=== PATIENT | male | born 1945 | race Caucasian/White ===

== ENCOUNTER 2017-04-13 08:18 | Outpatient (CLI) | payer MEDICARE | END 2017-04-13 08:19 | disposition home or self-care (01) | LOC: BICMRI 08:18 | PROVIDERS: ATTEND Orthopaedic Surgery | DX: M25.512 Pain in left shoulder (principal); M19.012 Primary osteoarthritis, left shoulder; M75.92 Shoulder lesion, unspecified, left shoulder ==

== ENCOUNTER 2017-11-08 15:07 | Emergency (ER) | payer MEDICARE ==
[2017-11-08] MEDS ORDERED: Famotidine 20 MG TAB ONE (16:08)
[2017-11-08] MEDS ORDERED: Ibuprofen 200 MG TAB ONE (16:08)
[2017-11-08] MEDS ORDERED: predniSONE 20 MG TAB ONE (16:08)
[2017-11-08] MEDS ORDERED: Acetaminophen 500 MG TAB ONE (16:08)
== END 2017-11-08 16:13 | disposition home or self-care (01) ==
LOC: ERS 15:07
DX: T63.451A Toxic effect of venom of hornets, accidental (unintentional), initial encounter (principal)
CPT/HCPCS: 99282; J7506

== ENCOUNTER 2019-08-22 14:11 | Outpatient (CLI) | payer MEDICARE, OTHER ==
--- NOTE | 2019-08-22 16:32 | EEG ---
DATE OF SERVICE: 08/22/2019 ATTENDING PHYSICIAN: Dory Martinez MD This EEG was performed using 24-channel [employer] video digital EEG machine with 24-disk electrodes. This was a routine EEG recording. BACKGROUND: The posterior background rhythm is 9 to 10 Hz. The background rhythm attenuates with eye opening and enhances with eye closure. HYPERVENTILATION: No significant response seen with hyperventilation. PHOTIC STIMULATION: Bioccipital symmetric driving responses observed. SLEEP: Drowsiness is observed. EEG DIAGNOSIS: Normal awake and drowsy EEG. Job ID: [id number]
== END 2019-08-22 14:12 | disposition home or self-care (01) ==
LOC: EEG 14:11
PROVIDERS: ATTEND Internal Medicine
DX: G40.409 Other generalized epilepsy and epileptic syndromes, not intractable, without status epilepticus (principal)
CPT/HCPCS: 95816

== ENCOUNTER 2019-10-06 06:01 | Observation (INO) | payer MEDICARE, OTHER ==
[2019-10-06 06:25] LABS: #Lymphocytes 1.1 thou/uL (1.20-3.40); #Monocytes 0.3 thou/uL (0.11-0.59); #Neutrophils 4.5 thou/uL (1.40-6.50); %Basophils 0.7 % (0.0-1.0); %Eosinophils 0.7 % (0.0-10.0); %Lymphocytes 18.7 % (21.0-51.0); %Neutrophils 74.8 % (42.0-75.0); Hemoglobin 14.1 g/dL (14.0-18.0); Mean Corpuscular HGB CONC 33.7 g/dL (32.0-36.0); Mean Corpuscular Hemoglobin 32.4 pg (27.0-31.0); Platelet Count 212 thou/uL (130-400); RBC Distribution Width 13.2 % (11.5-14.5); Red Blood Cell (RBC) Count 4.36 mill/uL (4.70-6.10)
[2019-10-06] MEDS ORDERED: Lorazepam 2 MG/ML VIAL ONE (06:34)
[2019-10-06 06:46] LABS: Acetaminophen Less than 6.0 mcg/mL (10.0-30.0); Alcohol Less than 10 mg/dL (Less than 10); Salicylate Less than 8.0 mg/dL (15.0-30.0)
[2019-10-06 06:48] LABS: ALT (SGPT) 15 U/L (8-55); AST (SGOT) 17 U/L (5-34); Albumin 4.2 g/dL (3.4-4.8); Alkaline Phosphatase 94 U/L (40-110); Anion Gap 21 mmol/L (10-20); BUN (Urea Nitrogen) 10 mg/dL (8.4-25.7); Bilirubin, Total 0.5 mg/dL (0.2-1.2); Calc. Creatinine Clearance 0 mL/min (70-130); Calcium 8.6 mg/dL (7.8-10.44); Carbon Dioxide 14 mmol/L (23-31); Chloride 104 mmol/L (98-107); Estimated GFR-MDRD 75; Globulin 2.4 g/dL (2.4-3.5); Glucose 186 mg/dL (83-110); Potassium 4.8 mmol/L (3.5-5.1); Protein, Total 6.6 g/dL (5.8-8.1); Sodium 134 mmol/L (136-145)
--- NOTE | 2019-10-06 08:08 | CT ---
CT OF THE BRAIN WITHOUT CONTRAST: DATE: 10/06/2019 INDICATION: 74-year-old male with history of seizure. COMPARISON: None. FINDINGS: There is moderate chronic small vessel white matter ischemic change. The septum pellucidum and third ventricle are midline. No definite acute infarct, hemorrhage, or hydrocephalus is present. Mastoid ai r cells are clear. Mild mucosal thickening is seen in the ethmoid air cells. The skull is intact. IMPRESSION: 1. No acute intracranial abnormality. 2. Moderate chronic small vessel white matter ischemic change. POS: BH
[2019-10-06 08:43] LABS: Glucose, Urine (Dipstick) Normal (Negative); Protein, Urine (Dipstick) 10 mg/dL (Neg-Trace)
[2019-10-06 09:18] LABS: Amphetamine Not Detected (NotDetected); Barbiturates Screen Not Detected (NotDetected); Benzodiazepine Screen Not Detected (NotDetected); Cocaine Metabolite Screen Not Detected (NotDetected); Medtox Control Line Valid? VALID (VALID); Medtox Reader # READER 4; Methadone Not Detected (NotDetected); Methamphetamine Not Detected (NotDetected); Opiate Screen Not Detected (NotDetected); Oxycodone Screen Not Detected (NotDetected); Phencyclidine (PCP) Not Detected (NotDetected); THC/Cannabinoid Screen Not Detected (NotDetected); Tricyclic Screen Not Detected (NotDetected)
[2019-10-06 09:28] LABS: Bilirubin Negative (Negative); Blood, Urine Negative (Negative); Clarity Clear (Clear); Ketone, Urine 10 mg/dL (Negative); Leukocyte Negative Leu/uL (Negative); Nitrite Negative (Negative); Specific Gravity, Urine 1.013 (1.002-1.036); Urobilinogen Normal mg/dL (Less than 2)
--- NOTE | 2019-10-06 10:23 | PDOC.HHP ---
Hospitalist HPI - History of Present Illness Seizure at home History of Present Illness: Mr. Lozano is a pleasant 74-year-old gentleman that has no significant past medical history. She was brought to the hospital by his via EMS due to concerns for seizure activity. The history of present illness is taken from review of the ER records and discussion with the ER physician as the patient does not remember what happened. The patient's says she noted around 2 AM that the patient was having tonic-clonic like activity and had lost consciousness. This appeared like a seizure she placed him on his side and noticed that he was frothing at the mouth and called EMS. He was brought to the ER where he appeared to be post ictal and a bit confused. As time went on he became more lucid he does not remember what happened. He says that prior to the event he denied having any headaches or any dizziness. He denies any fevers or chills no cough no congestion. This happened around 830 to 9 PM while he was laying in bed watching TV. The patient had a CT scan of the brain done in the ER which was negative. The patient's apparently told the ER physician that she believes this is related to alcohol. She says that he drinks up to a case of beer daily and "drinks until he becomes "" belligerent. The patient denies this and states that he typically drinks 4-5 beers a day. However, prior to this he states that he likely drinks too much. It appears in review of the records that he has had an evaluation for seizures in the past. It is noted that he had a fairly recent EEG done which was negative. The patient does not have any recollection of this. Hospitalist ROS - Review of Systems All other systems reviewed; all pertinent +/- noted in HPI/Subj Hospitalist History - Past Medical History Source: patient Musculoskeletal: reports: Other (Chronic left hip pain) Endocrine: reports: Other (Pre-Diabetes) Other Medical History: ALLERGIES: NKDA MEDICATION: Glucosamine chondroitin sulfate as needed Glenn Loera - Past Surgical History Past Surgical History: reports: Total Hip Replacement (Left THR) - Family History Family History: reports: cancer (Colon cancer mother), diabetes mellitus ( brother) - Social History Smoking Status: Former smoker (quit 20 years ago, few cigarettes prior to this) Alcohol: reports: Heavy (He admits to 5-6 beers a day) Living Situation: With Family (CODE STATUS- FULL CODE) Occupation: Retired - Exam General Appearance: NAD, awake alert Eye: PERRL, anicteric sclera ENT: normocephalic atraumatic, no oropharyngeal lesions Neck: supple, no JVD Heart: RRR, no murmur, no gallops, no rubs, normal peripheral pulses Respiratory: CTAB, no wheezes, no rales, no ronchi, normal chest expansion, no tachypnea, normal percussion Gastrointestinal: soft, non-tender, non-distended, normal bowel sounds, no palpable masses, no hepatomegaly, no guarding Extremities: no cyanosis, no edema Extremities - other findings: + Hammer toe deformity bilaterally Skin: normal turgor, no lesions, no rashes Neurological: cranial nerve grossly intact, no weakness, no focal deficits Neurological - other findings: Heel to toe intact Musculoskeletal: normal tone, normal strength Hospitalist Results - Labs Result Diagrams: 10/06/19 06:17 10/06/19 06:17 Lab results: WBC 6.0 thou/uL (4.8-10.8) 10/06/19 06:17 Hgb 14.1 g/dL (14.0-18.0) 10/06/19 06:17 Hct 41.8 % (42.0-52.0) L 10/06/19 06:17 MCV 96.0 fL (78.0-98.0) 10/06/19 06:17 Plt Count 212 thou/uL (130-400) 10/06/19 06:17 Neutrophils % 74.8 % (42.0-75.0) 10/06/19 06:17 Sodium 134 mmol/L (136-145) L 10/06/19 06:17 Potassium 4.8 mmol/L (3.5-5.1) 10/06/19 06:17 Chloride 104 mmol/L (98-107) 10/06/19 06:17 Carbon Dioxide 14 mmol/L (23-31) L 10/06/19 06:17 BUN 10 mg/dL (8.4-25.7) 10/06/19 06:17 Creatinine 0.97 mg/dL (0.7-1.3) 10/06/19 06:17 Glucose 186 mg/dL (83-110) H 10/06/19 06:17 Calcium 8.6 mg/dL (7.8-10.44) 10/06/19 06:17 Total Bilirubin 0.5 mg/dL (0.2-1.2) 10/06/19 06:17 AST 17 U/L (5-34) 10/06/19 06:17 ALT 15 U/L (8-55) 10/06/19 06:17 Alkaline Phosphatase 94 U/L (40-110) 10/06/19 06:17 Troponin I Less than 0.010 ng/mL (< 0.028) 10/06/19 06:17 Serum Total Protein 6.6 g/dL (5.8-8.1) 10/06/19 06:17 Albumin 4.2 g/dL (3.4-4.8) 10/06/19 06:17 Urine Ketones 10 mg/dL (Negative) A 10/06/19 08:27 Urine Blood Negative (Negative) 10/06/19 08:27 Urine Nitrite Negative (Negative) 10/06/19 08:27 Ur Leukocyte Esterase Negative Prabhu/uL (Negative) 10/06/19 08:27 - Radiology Interpretation CT scan - head Status: image reviewed by me (Negative for infarct or bleed) Chest x-ray Status: image reviewed by me (No evidence of infiltrate or effusion) Hospitalist H&P A/P - Problem (1) Seizure Code(s): R56.9 - UNSPECIFIED CONVULSIONS Status: Acute (2) Alcohol abuse Code(s): F10.10 - ALCOHOL ABUSE, UNCOMPLICATED Status: Chronic (3) Pre-diabetes Code(s): R73.03 - PREDIABETES Status: Chronic - Plan Plan: * Seizure disordermore than likely this represents an alcohol withdrawal seizure. It is noted he had a recent EEG which was negative for seizure activity. However the patient denies drinking as heavily as his 's idea of how much he drinks. Therefore we will go ahead and consult neurology to see whether or not he needs long-term antiepileptic medication. CT scan of the brain was negative. We will defer getting any additional imaging to neurology. * Alcohol abusethe patient had 2+ answers to the cage questions. He does admit to feeling guilty when he drinks. And he also feels that he should likely cut back. Therefore it is likely that he does have history of alcohol abuse. We will go ahead and place him on an AST protocol thiamine and folate as well as as needed Ativan * Prediabeteswe will place him on a diabetic diet as well as a sliding scale insulin * DVT and GI prophylaxiswe will hold off on Lovenox or heparin given his propensity for possible seizure. We will use SCDs only. And place him on Protonix.
[2019-10-06] MEDS ORDERED: cloNIDine 0.1 MG TAB PO PRN (12:04)
[2019-10-06] MEDS ORDERED: Lorazepam 2 MG/ML VIAL SLOW IVP PRN (12:04)
[2019-10-06] MEDS ORDERED: hydrALAZINE 20 MG/ML VIAL SLOW IVP PRN (12:04)
[2019-10-06] MEDS ORDERED: Acetaminophen 325 MG TAB PO PRN (12:04)
[2019-10-06 12:09] VITALS: BMI 24.2
[2019-10-06] MEDS ORDERED: Thiamine 100 MG TAB PO SCH (12:15)
[2019-10-06] MEDS ORDERED: Folic Acid 1 MG TAB PO SCH (12:15)
[2019-10-06 15:10] VITALS: BP 146/68; TEMP 98.2
[2019-10-06 18:06] LABS: SARS-CoV-2 MS2 Positive; SARS-CoV-2 N Gene Negative; SARS-CoV-2 S Gene Negative; SARS-CoV-2 by NAA Not Detected (NotDetected); SARS-CoV-2 orf1ab Negative
[2019-10-06] MEDS ORDERED: levETIRAcetam 500 MG TAB PO SCH (21:00)
--- NOTE | 2019-10-06 23:54 | CON ---
DATE OF CONSULTATION: 10/06/2019 CONSULTING PHYSICIAN: Hospitalist Service. IMPRESSION: Recurrent seizures. PLAN: 1. Keppra 500 mg twice a day. 2. Office followup. HISTORY OF PRESENT ILLNESS: Mr. Lozano is a 74-year-old man with a past history of a hip replacement. He admits to drinking beer on a daily basis. He reports he only had 4 beers on Sunday. He went to sleep and his witnessed generalized tonic-clonic seizure white was sleeping. He is not having any withdrawal symptoms. He had a similar event about 2 weeks ago. His witnessed this one as well. Apparently, she is a nurse and they did not seek medical care right away. He had CT of the brain done, which showed some small-vessel ischemic changes but was otherwise unremarkable. His EEG was normal. He otherwise is feeling well. PAST MEDICAL HISTORY: Degenerative joint disease. PAST SURGICAL HISTORY: Left hip replacement. ALLERGIES: NONE REPORTED. SOCIAL HISTORY: No tobacco or drug use. FAMILY HISTORY: Noncontributory. REVIEW OF SYSTEMS: Ten-system review of systems is otherwise negative. PHYSICAL EXAMINATION: GENERAL: He is a healthy-appearing elderly man, in no distress. VITAL SIGNS: Stable. He is afebrile. HEENT: Pupils equal and reactive. Conjunctivae clear. Oropharynx clear. Cranium, normocephalic and atraumatic. NECK: Supple. No lymphadenopathy. SKIN: Clear. EXTREMITIES: No cyanosis or edema. ABDOMEN: Soft and nontender. NEUROLOGIC: He is alert and appropriate. His speech is fluent and clear. No focal deficits. He does not have any tremor or signs of withdrawal. SUMMARY: Given his age and recurrent episodes over the recent past, I would go ahead and start him on anticonvulsant therapy. He is willing to do so. I will follow up with him in the office. Job ID: [id number]
--- NOTE | 2019-10-07 03:20 | DIS ---
DATE OF ADMISSION: 10/06/2019 DATE OF DISCHARGE: 10/06/2019 DISCHARGE DISPOSITION: Home. DISCHARGE DIAGNOSES: 1. Seizure disorder. 2. Alcohol abuse. 3. Prediabetes. 4. Chronic pain secondary to the left hip. DISCHARGE MEDICATIONS: Include; 1. Keppra 500 mg one p.o. b.i.d. 2. Thiamine 100 mg p.o. daily. 3. Folic acid 1 mg p.o. daily. 4. Turmeric extract daily. 5. Saw Rodanthe 450 mg b.i.d. 6. Glucosamine chondroitin twice a day. IMAGING DONE DURING THE HOSPITAL STAY: The patient had a CT scan of the brain showing no acute intracranial abnormality. There was some moderate chronic small vessel white matter ischemic changes. CODE STATUS: Full code. ALLERGIES: NO KNOWN DRUG ALLERGIES. HOSPITAL COURSE: Mr. Lozano is a pleasant 74-year-old gentleman, who had a witnessed seizure at home by his . This is while he was asleep. She turned him over and made sure that he did an aspirate and called EMS. He was brought to the hospital and had a CT scan of the brain, which was negative. He had a previous seizure before and had an EEG done back in August, which showed no seizure activity at that time. He was evaluated by the neurologist on-call, and it was felt to go ahead and place him on Keppra. Alcohol use was discussed. The patient did not feel that he had a problem with alcohol, but he did test positive with two of the cage questions and he was instructed to cut back his usage. He was also placed on thiamine as well as folic acid, and he will need to follow up with his primary care physician in 1 to 2 weeks. Job ID: [id number]
[2019-10-07] MEDS ORDERED: Folic Acid 1 MG TAB PO SCH (09:00)
[2019-10-07] MEDS ORDERED: Thiamine 100 MG TAB PO SCH (09:00)
== END 2019-10-06 18:16 | disposition home or self-care (01) ==
LOC: ERS 06:01 → 2SE 09:57
PROVIDERS: ADMIT Internal Medicine; ATTEND Internal Medicine
DX: G40.909 Epilepsy, unspecified, not intractable, without status epilepticus (principal); R73.03 Prediabetes; G89.29 Other chronic pain; M25.552 Pain in left hip; Z79.899 Other long term (current) drug therapy; Z87.891 Personal history of nicotine dependence; Z96.642 Presence of left artificial hip joint
CPT/HCPCS: 36600; 51701; 70450; 80053; 80306; 80307; 81003; 84484; 85025; 93005; 96361; 96374; 96375; 99284; G0378 ×2; U0003; 36415; 87635; J2060

== ENCOUNTER 2020-07-27 09:40 | Outpatient (CLI) | payer MEDICARE, OTHER | END 2020-07-27 09:41 | disposition home or self-care (01) | LOC: NM 09:40 | PROVIDERS: ATTEND Orthopaedic Surgery | DX: Z47.1 Aftercare following joint replacement surgery (principal); Z96.642 Presence of left artificial hip joint | CPT/HCPCS: 78315; A9503 ==

== ENCOUNTER 2023-12-11 07:02 | Outpatient (CLI) | payer MEDICARE, OTHER | END 2023-12-11 07:03 | disposition home or self-care (01) | LOC: BICULT 07:02 | PROVIDERS: ATTEND Internal Medicine | DX: Z09 Encounter for follow-up examination after completed treatment for conditions other than malignant neoplasm (principal); Z82.49 Family history of ischemic heart disease and other diseases of the circulatory system | CPT/HCPCS: 76775 ==

== ENCOUNTER 2024-10-05 18:17 | Inpatient (IN) | payer MEDICARE, OTHER ==
[~2024-10-05 18:17] MED LIST: Iopamidol-370 76% 500 ML MDV (1 ML CHARGE) ONE
[2024-10-05 19:04] LABS: #Basophils 0.04 10x3/uL (0.0-0.2); #Eosinophils Less than 0.03 10x3/uL (0.0-0.7); #Monocytes 2.09 10x3/uL (0.11-0.59); #Neutrophils 18.32 10x3/uL (1.40-6.50); %Basophils 0.2 % (0.0-1.0); %Eosinophils 0.0 % (0.0-10.0); %Lymphocytes 4.5 % (21.0-51.0); %Monocytes 9.7 % (0.0-10.0); %Neutrophils 85.1 % (42.0-75.0); Hematocrit 41.8 % (42.0-52.0); Hemoglobin 15.0 g/dL (14.0-18.0); Mean Corpuscular Hemoglobin 34.3 pg (27.0-31.0); Mean Corpuscular Volume 95.7 fL (78.0-98.0); Platelet Count 220 10x3/uL (130-400); Red Blood Cell (RBC) Count 4.37 mill/uL (4.70-6.10); White Blood Cell (WBC) Count 21.55 10x3/uL (4.8-10.8)
[2024-10-05 19:19] LABS: ALT (SGPT) 17 U/L (Less than 45); AST (SGOT) 24 U/L (11-34); Albumin 3.6 g/dL (3.1-4.5); Alkaline Phosphatase 81 U/L (40-110); Anion Gap 18 mmol/L (10-20); BUN (Urea Nitrogen) 18 mg/dL (8.4-25.7); Bilirubin, Total 0.7 mg/dL (0.3-1.2); Calc. Creatinine Clearance 0 mL/min (70-130); Calcium 9.4 mg/dL (7.8-10.44); Carbon Dioxide 20 mmol/L (23-31); Globulin 3.0 g/dL (2.4-3.5); Glucose 158 mg/dL (83-110); Lipase 18 U/L (8-78); Magnesium 1.9 mg/dL (1.6-2.6); Potassium 4.1 mmol/L (3.5-5.1); Sodium 126 mmol/L (136-145)
[2024-10-05 19:38] LABS: Chloride 94 mmol/L (98-107)
[2024-10-05 19:50] LABS: INR-International Normal Ratio 1.1; Prothrombin Time 14.1 sec (12.0-14.7)
[2024-10-05 19:51] LABS: PTT 31.5 sec (22.9-36.1)
[2024-10-05] MEDS ORDERED: Electrolyte Replacement Protocol 1 EACH FS SCH (21:30)
[2024-10-06] MEDS: levETIRAcetam 500 MG TAB PO SCH ×2 (00:36→08:05)
[2024-10-06 00:46] VITALS: BMI 25.0
[2024-10-06 04:51] LABS: #Basophils 0.04 10x3/uL (0.0-0.2); #Eosinophils 0.06 10x3/uL (0.0-0.7); #Monocytes 2.08 10x3/uL (0.11-0.59); #Neutrophils 20.26 10x3/uL (1.40-6.50); %Basophils 0.2 % (0.0-1.0); %Eosinophils 0.3 % (0.0-10.0); %Lymphocytes 3.2 % (21.0-51.0); %Monocytes 8.9 % (0.0-10.0); %Neutrophils 86.8 % (42.0-75.0); Hematocrit 40.1 % (42.0-52.0); Hemoglobin 14.3 g/dL (14.0-18.0); Mean Corpuscular Hemoglobin 33.7 pg (27.0-31.0); Mean Corpuscular Volume 94.6 fL (78.0-98.0); Platelet Count 229 10x3/uL (130-400); Red Blood Cell (RBC) Count 4.24 mill/uL (4.70-6.10); White Blood Cell (WBC) Count 23.33 10x3/uL (4.8-10.8)
[2024-10-06 05:14] LABS: ALT (SGPT) 15 U/L (Less than 45); AST (SGOT) 21 U/L (11-34); Albumin 2.9 g/dL (3.1-4.5); Alkaline Phosphatase 64 U/L (40-110); Anion Gap 15 mmol/L (10-20); BUN (Urea Nitrogen) 18 mg/dL (8.4-25.7); Bilirubin, Total 0.7 mg/dL (0.3-1.2); Calc. Creatinine Clearance 58 mL/min (70-130); Calcium 8.6 mg/dL (7.8-10.44); Carbon Dioxide 18 mmol/L (23-31); Chloride 97 mmol/L (98-107); Globulin 2.9 g/dL (2.4-3.5); Glucose 180 mg/dL (83-110); Potassium 4.0 mmol/L (3.5-5.1); Sodium 126 mmol/L (136-145)
[2024-10-06] MEDS: Ondansetron PF 4 MG/2 ML Vial IVP PRN (08:05)
[2024-10-06] MEDS: Famotidine 20 MG TAB PO SCH (08:05)
[2024-10-06] MEDS: Magnesium 2 GM/50 ML(in water) 2 GM in Premix 1 BAG IVPB SCH (08:05)
[2024-10-06 10:25] LABS: Anion Gap 15 mmol/L (10-20); BUN (Urea Nitrogen) 20 mg/dL (8.4-25.7); Calc. Creatinine Clearance 52 mL/min (70-130); Calcium 8.6 mg/dL (7.8-10.44); Carbon Dioxide 19 mmol/L (23-31); Chloride 96 mmol/L (98-107); Glucose 185 mg/dL (83-110); Potassium 4.9 mmol/L (3.5-5.1); Sodium 125 mmol/L (136-145)
[2024-10-06] MEDS: Ciprofloxacin Lactate/D5W 400 MG in Premix 1 BAG IVPB SCH (11:22)
[2024-10-06 13:06] LABS: Osmolality, Serum 267 mOsm/kg (280-301)
[2024-10-06 17:14] LABS: Anion Gap 11 mmol/L (10-20); BUN (Urea Nitrogen) 24 mg/dL (8.4-25.7); Calc. Creatinine Clearance 41 mL/min (70-130); Calcium 8.5 mg/dL (7.8-10.44); Carbon Dioxide 17 mmol/L (23-31); Chloride 97 mmol/L (98-107); Glucose 166 mg/dL (83-110); Potassium 4.1 mmol/L (3.5-5.1); Sodium 121 mmol/L (136-145)
[2024-10-06 19:12] LABS: Sodium 122 mmol/L (136-145)
[2024-10-06] MEDS: Sodium Bicarbonate Tab 325 MG TAB PO SCH (21:26)
[2024-10-06 22:08] LABS: Anion Gap 13 mmol/L (10-20); BUN (Urea Nitrogen) 26 mg/dL (8.4-25.7); Calc. Creatinine Clearance 32 mL/min (70-130); Calcium 8.4 mg/dL (7.8-10.44); Carbon Dioxide 14 mmol/L (23-31); Chloride 99 mmol/L (98-107); Glucose 171 mg/dL (83-110); Potassium 4.1 mmol/L (3.5-5.1); Sodium 122 mmol/L (136-145)
[2024-10-07 01:22] LABS: Osmolality, Urine 581 mOsm/kg (50-1200)
[2024-10-07 03:02] LABS: Campy jejuni + coli by PCR Negative (Negative); STEC Shiga Toxin 1+2 POSITIVE (Negative); Salmonella spp. by PCR Negative (Negative); Shigella spp + EIEC by PCR Negative (Negative)
[2024-10-07 08:40] LABS: Anion Gap 18 mmol/L (10-20); BUN (Urea Nitrogen) 32 mg/dL (8.4-25.7); Calc. Creatinine Clearance 25 mL/min (70-130); Calcium 8.3 mg/dL (7.8-10.44); Carbon Dioxide 14 mmol/L (23-31); Chloride 96 mmol/L (98-107); Glucose 150 mg/dL (83-110); Potassium 4.2 mmol/L (3.5-5.1); Sodium 124 mmol/L (136-145)
[2024-10-07 10:44] LABS: Hematocrit 40.6 % (42.0-52.0); Hemoglobin 14.8 g/dL (14.0-18.0); Mean Corpuscular Hemoglobin 34.3 pg (27.0-31.0); Mean Corpuscular Volume 94.0 fL (78.0-98.0); Platelet Count 236 10x3/uL (130-400); Red Blood Cell (RBC) Count 4.32 mill/uL (4.70-6.10); White Blood Cell (WBC) Count 31.29 10x3/uL (4.8-10.8)
[2024-10-07 11:36] LABS: Anisocytosis SLIGHT = 6-15 cells HPF (0-5); Burr Cells MARKED = >16 cells HPF (0-1); Dohle Bodies SLIGHT; Platelet Adequacy Comment Platelets Normal; Poikilocytosis SLIGHT = 6-15 cells HPF (0-5); Polychromasia MODERATE = 3-4 cells HPF (0-2); Reflex for Review?? YES; Schistocytes SLIGHT = 2-5 cells HPF (0-1); Smudge Cells 6.0 %; Toxic Granulation MODERATE
[2024-10-07 11:38] LABS: Anion Gap 15 mmol/L (10-20); BUN (Urea Nitrogen) 34 mg/dL (8.4-25.7); Calc. Creatinine Clearance 25 mL/min (70-130); Calcium 8.4 mg/dL (7.8-10.44); Carbon Dioxide 16 mmol/L (23-31); Chloride 96 mmol/L (98-107); Glucose 153 mg/dL (83-110); Potassium 4.3 mmol/L (3.5-5.1); Sodium 123 mmol/L (136-145)
[2024-10-07 13:26] LABS: Albumin 2.5 g/dL (3.1-4.5); CK (CPK) 19.0 U/L (30-200)
[2024-10-07] MEDS: Sodium Bicarbonate Tab 325 MG TAB PO SCH (14:31)
[2024-10-07] MEDS: Albumin 25% 25 GM (100 mL) BOT IVPB SCH ×2 (14:31→18:07)
[2024-10-07 18:27] LABS: Anion Gap 18 mmol/L (10-20); BUN (Urea Nitrogen) 38 mg/dL (8.4-25.7); Calc. Creatinine Clearance 21 mL/min (70-130); Calcium 8.3 mg/dL (7.8-10.44); Carbon Dioxide 17 mmol/L (23-31); Chloride 94 mmol/L (98-107); Glucose 130 mg/dL (83-110); Potassium 4.1 mmol/L (3.5-5.1); Sodium 125 mmol/L (136-145)
[2024-10-07] MEDS: Ciprofloxacin Lactate/D5W 400 MG in Premix 1 BAG IVPB SCH (19:44)
[2024-10-08] MEDS: Melatonin 3 MG TAB PO PRN (00:02)
[2024-10-08 04:23] LABS: ALT (SGPT) 8 U/L (Less than 45); AST (SGOT) 20 U/L (11-34); Albumin 3.2 g/dL (3.1-4.5); Alkaline Phosphatase 58 U/L (40-110); Anion Gap 16 mmol/L (10-20); BUN (Urea Nitrogen) 45 mg/dL (8.4-25.7); Bilirubin, Total 1.2 mg/dL (0.3-1.2); Calc. Creatinine Clearance 19 mL/min (70-130); Calcium 8.1 mg/dL (7.8-10.44); Carbon Dioxide 19 mmol/L (23-31); Chloride 92 mmol/L (98-107); Globulin 2.2 g/dL (2.4-3.5); Glucose 138 mg/dL (83-110); Potassium 3.8 mmol/L (3.5-5.1); Sodium 123 mmol/L (136-145)
[2024-10-08 06:35] LABS: #Basophils 0.08 10x3/uL (0.0-0.2); #Eosinophils Less than 0.03 10x3/uL (0.0-0.7); #Monocytes 3.98 10x3/uL (0.11-0.59); #Neutrophils 22.90 10x3/uL (1.40-6.50); %Basophils 0.3 % (0.0-1.0); %Eosinophils 0.1 % (0.0-10.0); %Lymphocytes 4.0 % (21.0-51.0); %Monocytes 14.0 % (0.0-10.0); %Neutrophils 80.2 % (42.0-75.0); Hematocrit 34.9 % (42.0-52.0); Hemoglobin 12.4 g/dL (14.0-18.0); Mean Corpuscular Hemoglobin 33.9 pg (27.0-31.0); Mean Corpuscular Volume 95.4 fL (78.0-98.0); Platelet Count 166 10x3/uL (130-400); Red Blood Cell (RBC) Count 3.66 mill/uL (4.70-6.10); White Blood Cell (WBC) Count 28.51 10x3/uL (4.8-10.8)
[2024-10-08 09:31] LABS: Platelet Count 188 10x3/uL (130-400)
[2024-10-08 09:49] LABS: INR-International Normal Ratio 1.4; Prothrombin Time 17.3 sec (12.0-14.7)
[2024-10-08 09:50] LABS: Bilirubin, Direct 0.5 mg/dL (0.1-0.3); Bilirubin, Total 1.4 mg/dL (0.3-1.2)
[2024-10-08 09:50] LABS: Fibrinogen 693 mg/dL (253-463); PTT 31.7 sec (22.9-36.1)
[2024-10-08] MEDS: Famotidine 20 MG TAB PO SCH (09:54)
[2024-10-08 09:59] LABS: D-Dimer Test 7.83 mcg/mL (0.27-0.43)
[2024-10-08 10:06] LABS: Anisocytosis SLIGHT = 6-15 cells HPF (0-5); Burr Cells MODERATE= 6-15 cells HPF (0-1); Platelet Adequacy Comment Platelets Normal; Poikilocytosis MODERATE=16-30 cells HPF (0-5); Polychromasia SLIGHT = 2-3 cells HPF (0-2)
[2024-10-09 09:11] LABS: ALT (SGPT) 9 U/L (Less than 45); AST (SGOT) 25 U/L (11-34); Albumin 3.2 g/dL (3.1-4.5); Alkaline Phosphatase 69 U/L (40-110); Anion Gap 15 mmol/L (10-20); BUN (Urea Nitrogen) 70 mg/dL (8.4-25.7); Bilirubin, Total 1.1 mg/dL (0.3-1.2); Calc. Creatinine Clearance 16 mL/min (70-130); Calcium 8.8 mg/dL (7.8-10.44); Carbon Dioxide 19 mmol/L (23-31); Chloride 92 mmol/L (98-107); Globulin 2.5 g/dL (2.4-3.5); Glucose 157 mg/dL (83-110); Potassium 4.0 mmol/L (3.5-5.1); Sodium 122 mmol/L (136-145)
[2024-10-09 09:13] LABS: Hematocrit 32.9 % (42.0-52.0); Hemoglobin 11.9 g/dL (14.0-18.0); Mean Corpuscular Hemoglobin 33.9 pg (27.0-31.0); Mean Corpuscular Volume 93.7 fL (78.0-98.0); Platelet Count 138 10x3/uL (130-400); Red Blood Cell (RBC) Count 3.51 mill/uL (4.70-6.10); White Blood Cell (WBC) Count 31.54 10x3/uL (4.8-10.8)
[2024-10-09 09:36] VITALS: BP 137/65; TEMP 97.6
[2024-10-09] MEDS: Ciprofloxacin Lactate/D5W 200 MG in Premix 1 BAG IVPB SCH (09:40)
[2024-10-09] MEDS: Sodium Bicarbonate Tab 325 MG TAB PO SCH (09:40)
[2024-10-09] MEDS: Acetaminophen 325 MG TAB PO PRN (09:46)
[2024-10-09 10:03] LABS: Anisocytosis SLIGHT = 6-15 cells HPF (0-5); Burr Cells MARKED = >16 cells HPF (0-1); Platelet Adequacy Comment Platelets Normal; Polychromasia SLIGHT = 2-3 cells HPF (0-2); Schistocytes SLIGHT = 2-5 cells HPF (0-1); Smudge Cells 8.0 %; Toxic Granulation MODERATE
== END 2024-10-09 11:32 | disposition short-term general hospital (02) | DRG 871 ==
LOC: ERS 18:17 → PCU 21:28 → UNDODISIN 10-09 11:32
PROVIDERS: ADMIT Internal Medicine; ATTEND Hospitalist
PROC: 3E03329 Introduction of Other Anti-infective into Peripheral Vein, Percutaneous Approach (ICD-10-PCS; principal; 2024-10-07)
PROC: 30233J1 Transfusion of Nonautologous Serum Albumin into Peripheral Vein, Percutaneous Approach (ICD-10-PCS; 2024-10-07)
DX: A41.9 Sepsis, unspecified organism (principal); N17.0 Acute kidney failure with tubular necrosis; K92.1 Melena; E22.2 Syndrome of inappropriate secretion of antidiuretic hormone; E87.20 Acidosis, unspecified; N18.4 Chronic kidney disease, stage 4 (severe); G40.909 Epilepsy, unspecified, not intractable, without status epilepticus; E11.22 Type 2 diabetes mellitus with diabetic chronic kidney disease; E27.8 Other specified disorders of adrenal gland; Z96.642 Presence of left artificial hip joint; K52.89 Other specified noninfective gastroenteritis and colitis; D63.1 Anemia in chronic kidney disease; B96.21 Shiga toxin-producing Escherichia coli [E. coli] [STEC] O157 as the cause of diseases classified elsewhere; I12.9 Hypertensive chronic kidney disease with stage 1 through stage 4 chronic kidney disease, or unspecified chronic kidney disease; Z87.891 Personal history of nicotine dependence; Z79.899 Other long term (current) drug therapy
CPT/HCPCS: 36415; 74018; 74176; 74177; 80048; 80053; 82040; 82247; 82248; 82550; 82570; 83010; 83605; 83615; 83690; 83735; 83930; 83935; 84300; 85025; 85049; 85060; 85300; 85362; 85384; 85610; 85730; 86160; 86850; 86900; 86901; 87040; 87324; 87449; 87505; 93005; 96374; 96375; J0744; J2270; J2405; J2543; J3475; J7030; J7120; P9047; Q9967